=== PATIENT | female | born 1975 ===

== ENCOUNTER 2022-10-30 18:26 | Inpatient (IN) | payer OTHER ==
[2022-10-30] MEDS ORDERED: SODIUM CHLORIDE 0.9% 500 ML INFUS.BAG IV ONE ×3 (19:01→21:06)
[2022-10-30] MEDS ORDERED: DEXAMETHASONE SOD PHOSPHATE 10 MG/1 ML VIAL IVPUSH ONE (19:11)
[2022-10-30] MEDS ORDERED: ACETAMINOPHEN 1000 MG/100 ML BAG IVPB ONE (19:16)
[2022-10-30 19:47] LABS: HEMATOCRIT 38.1 % (32.4-45.2); HEMOGLOBIN 12.3 GM/dL (10.7-15.3); MCH 29.7 pg (25.7-33.7); MCHC 32.3 g/dl (32.0-36.0); MEAN CELL VOLUME 91.9 fl (80-96); MEAN PLT VOLUME 9.1 fl (7.5-11.1); PLATELET COUNT 179 10^3/uL (134-434); RBC 4.14 M/mm3 (3.60-5.2); RDW 14.3 % (11.6-15.6)
[2022-10-30 19:48] LABS: VENOUS BASE EXCESS -1.3 mmol/L (-2-2); VENOUS O2 SATURATION 66.6 % (70-80); VENOUS PCO2 43.4 mmHg (38-52); VENOUS PH 7.363 (7.310-7.410)
[2022-10-30 20:02] LABS: POTASSIUM 4.2 mmol/L (3.5-5.1)
[2022-10-30 20:03] LABS: CALCIUM 8.6 mg/dL (8.5-10.1)
[2022-10-30 20:04] LABS: BLOOD UREA NITROGEN 13.7 mg/dL (7-18)
[2022-10-30 20:07] LABS: CREATININE 0.6 mg/dL (0.55-1.3)
[2022-10-30 20:09] LABS: BILIRUBIN,TOTAL 0.3 mg/dL (0.2-1); TOT PROT 7.9 g/dl (6.4-8.2)
[2022-10-30] MEDS ORDERED: IVERMECTIN 3 MG TABLET PO ONE (20:15)
[2022-10-30 20:17] LABS: LACTIC ACID 4.2 mmol/L (0.4-2.0)
[2022-10-30 21:03] LABS: ANISOCYTOSIS 0; MACROCYTOSIS 0; PLATELET ESTIMATE NORMAL
[2022-10-30 21:17] LABS: INR 1.34 (0.83-1.09); PROTHROMBIN TIME (PATIENT) 15.5 SEC (9.7-13.0)
[2022-10-30 21:20] LABS: ACTIVATED PTT 30.6 SECONDS (25.2-36.5)
[2022-10-30 22:35] LABS: LACTIC ACID 3.2 mmol/L (0.4-2.0)
[2022-10-30] MEDS ORDERED: CLOPIDOGREL BISULFATE 300 MG TABLET PO ONE (22:45)
[2022-10-30] MEDS ORDERED: ENOXAPARIN NA (PORCINE) 40 MG/0.4 ML DISP.SYRIN SQ ONE ×2 (22:46→23:06)
[2022-10-31] MEDS ORDERED: CLOPIDOGREL BISULFATE 300 MG TABLET ONE (01:37)
[2022-10-31] MEDS ORDERED: SODIUM CHLORIDE 500 ML IV STA (02:47)
[2022-10-31 06:49] LABS: HEMOGLOBIN 11.1 GM/dL (10.7-15.3); MCH 30.1 pg (25.7-33.7); MCHC 32.6 g/dl (32.0-36.0); MEAN CELL VOLUME 92.6 fl (80-96); MEAN PLT VOLUME 9.1 fl (7.5-11.1); PLATELET COUNT 138 10^3/uL (134-434); RBC 3.67 M/mm3 (3.60-5.2); RDW 14.2 % (11.6-15.6)
[2022-10-31 07:05] LABS: POTASSIUM 3.9 mmol/L (3.5-5.1)
[2022-10-31 07:07] LABS: BLOOD UREA NITROGEN 11.9 mg/dL (7-18); CALCIUM 7.4 mg/dL (8.5-10.1); MAGNESIUM 1.9 mg/dL (1.8-2.4)
[2022-10-31 07:08] LABS: ALBUMIN 2.6 g/dl (3.4-5.0)
[2022-10-31 07:10] LABS: PHOSPHOROUS 2.1 mg/dL (2.5-4.9)
[2022-10-31 07:11] LABS: CREATININE 0.4 mg/dL (0.55-1.3)
[2022-10-31 07:12] LABS: BILIRUBIN,TOTAL 0.3 mg/dL (0.2-1); TOT PROT 6.9 g/dl (6.4-8.2)
[2022-10-31] MEDS ORDERED: TRIAMCINOLONE ACET 0.1% CREAM 15 GM TUBE TP PRN (07:19)
[2022-10-31] MEDS ORDERED: hydrOXYzine HCL 10 MG/5 ML LIQUID BULK BOTTLE GT PRN (09:47)
[2022-10-31] MEDS ORDERED: ENOXAPARIN NA (PORCINE) 40 MG/0.4 ML DISP.SYRIN SQ ONE (10:26)
[2022-10-31] MEDS: D5-1/2NS+10 MEQ KCL - 10 MEQ/1,000 ML INFUS.BAG IV SCH (10:27)
[2022-10-31] MEDS: ENOXAPARIN NA (PORCINE) 40 MG/0.4 ML DISP.SYRIN SQ SCH (10:28)
[2022-10-31] MEDS ORDERED: DEXAMETHASONE SOD PHOSPHATE 4 MG/1 ML VIAL IVPB ONE (14:24)
[2022-10-31] MEDS ORDERED: DEXAMETHASONE 4 MG TABLET (FP) PO SCH (14:30)
[2022-10-31] MEDS ORDERED: DEXAMETHASONE SOD PHOSPHATE 10 MG/1 ML VIAL ONE (14:35)
[2022-10-31] MEDS: ACETAMINOPHEN 650 MG/20.3 ML ORAL SOLUTION (CUPS) GT PRN (19:26)
[2022-10-31] MEDS: AZTREONAM 1 GM in DEXTROSE 5%-WATER - 50 ML IVPB SCH (20:55)
[2022-10-31] MEDS ORDERED: FAMOTIDINE 20 MG/50 ML IVPB 20 MG/50 ML MG IVPB SCH (22:00)
[2022-10-31] MEDS ORDERED: VANCOMYCIN 1 GM in D5W (PRE-DOCKED) 1,000 MG/250 ML (RESTRICTED TO ID ONLY IVPB SCH (22:00)
[2022-10-31] MEDS: VANCOMYCIN 1 GM/200 ML PREMIX BAG (RESTRICTED TO ID ONLY) IVPB SCH (22:07)
[2022-10-31] MEDS: FAMOTIDINE 20 MG/50 ML IVPB 20 MG/50 ML MG IVPB SCH (23:07)
[2022-11-01] MEDS ORDERED: ACETAMINOPHEN 1000 MG/100 ML BAG IVPB ONE (00:41)
[2022-11-01] MEDS: AZTREONAM 1 GM in DEXTROSE 5%-WATER - 50 ML IVPB SCH ×4 (01:34→20:20)
[2022-11-01] MEDS: D5-1/2NS+10 MEQ KCL - 10 MEQ/1,000 ML INFUS.BAG IV SCH ×2 (01:39→10:45)
[2022-11-01] MEDS ORDERED: AZTREONAM 1 GM in DEXTROSE 5%-WATER - 50 ML IVPB SCH (02:00)
[2022-11-01] MEDS ORDERED: LORazepam 2 MG TABLET PO ONE (03:34)
[2022-11-01] MEDS ORDERED: LORazepam 0.5 MG TABLET GT ONE (03:34)
[2022-11-01 08:21] LABS: BASO % 0.2 % (0-2.0); HEMATOCRIT 36.3 % (32.4-45.2); HEMOGLOBIN 11.7 GM/dL (10.7-15.3); LYMPH % 16.1 % (8-40); MCH 30.2 pg (25.7-33.7); MCHC 32.3 g/dl (32.0-36.0); MEAN CELL VOLUME 93.3 fl (80-96); MEAN PLT VOLUME 8.9 fl (7.5-11.1); MONO % 13.2 % (3.8-10.2); NEUT % 70.5 % (42.8-82.8); PLATELET COUNT 143 10^3/uL (134-434); RBC 3.88 M/mm3 (3.60-5.2); RDW 14.6 % (11.6-15.6); WHITE BLOOD COUNT 5.4 K/mm3 (4.0-10.0)
[2022-11-01 08:31] LABS: POTASSIUM 3.1 mmol/L (3.5-5.1)
[2022-11-01 08:35] LABS: CALCIUM 7.7 mg/dL (8.5-10.1)
[2022-11-01 08:36] LABS: ALBUMIN 2.7 g/dl (3.4-5.0); BLOOD UREA NITROGEN 17.1 mg/dL (7-18)
[2022-11-01 08:39] LABS: CREATININE 0.4 mg/dL (0.55-1.3)
[2022-11-01 08:41] LABS: BILIRUBIN,TOTAL 0.4 mg/dL (0.2-1); TOT PROT 7.1 g/dl (6.4-8.2)
[2022-11-01] MEDS: FAMOTIDINE 20 MG/50 ML IVPB 20 MG/50 ML MG IVPB SCH ×2 (10:43→21:58)
[2022-11-01] MEDS: ENOXAPARIN NA (PORCINE) 40 MG/0.4 ML DISP.SYRIN SQ SCH (10:44)
[2022-11-01] MEDS: VANCOMYCIN 1 GM/200 ML PREMIX BAG (RESTRICTED TO ID ONLY) IVPB SCH (11:13)
[2022-11-01] MEDS: ACETAMINOPHEN 650 MG/20.3 ML ORAL SOLUTION (CUPS) GT PRN (11:16)
[2022-11-01] MEDS ORDERED: REMDESIVIR 200 MG in SODIUM CHLORIDE 250 ML IVPB ONE (15:09)
[2022-11-01] MEDS: DEXAMETHASONE SOD PHOSPHATE 10 MG/1 ML VIAL IVPUSH SCH (16:17)
[2022-11-02 07:09] LABS: BASO % 0.1 % (0-2.0); LYMPH % 30.8 % (8-40); MCH 29.9 pg (25.7-33.7); MCHC 32.4 g/dl (32.0-36.0); MEAN CELL VOLUME 92.3 fl (80-96); MONO % 10.5 % (3.8-10.2); NEUT % 58.6 % (42.8-82.8); PLATELET COUNT 135 10^3/uL (134-434); RBC 4.01 M/mm3 (3.60-5.2); RDW 14.5 % (11.6-15.6); WHITE BLOOD COUNT 2.8 K/mm3 (4.0-10.0)
[2022-11-02 07:17] LABS: POTASSIUM 3.4 mmol/L (3.5-5.1)
[2022-11-02 07:18] LABS: CALCIUM 7.1 mg/dL (8.5-10.1)
[2022-11-02 07:19] LABS: ALBUMIN 2.6 g/dl (3.4-5.0); BLOOD UREA NITROGEN 13.8 mg/dL (7-18)
[2022-11-02 07:22] LABS: CREATININE 0.3 mg/dL (0.55-1.3)
[2022-11-02 07:24] LABS: BILIRUBIN,TOTAL 0.3 mg/dL (0.2-1); TOT PROT 6.7 g/dl (6.4-8.2)
[2022-11-02] MEDS ORDERED: POTASSIUM CHLORIDE ORAL LIQUID 20 MEQ/15 ML PO ONE (09:15)
[2022-11-02] MEDS ORDERED: REMDESIVIR 100 MG in SODIUM CHLORIDE 250 ML IVPB SCH (10:00)
[2022-11-02] MEDS: DEXAMETHASONE SOD PHOSPHATE 10 MG/1 ML VIAL IVPUSH SCH (10:03)
[2022-11-02] MEDS: ENOXAPARIN NA (PORCINE) 40 MG/0.4 ML DISP.SYRIN SQ SCH (10:03)
[2022-11-02] MEDS: FAMOTIDINE 20 MG/50 ML IVPB 20 MG/50 ML MG IVPB SCH ×2 (10:04→21:55)
[2022-11-02] MEDS: ACETAMINOPHEN 650 MG/20.3 ML ORAL SOLUTION (CUPS) GT PRN ×2 (10:52→18:37)
[2022-11-02] MEDS ORDERED: LIDOCAINE VISCOUS 2% ORAL/TOP 15 ML UNIT-DOSE CUP MM ONE (12:00)
[2022-11-02] MEDS: DEXTROSE 5%-0.45% SALINE 1,000 ML IV SCH (15:14)
[2022-11-02] MEDS: REMDESIVIR 100 MG in SODIUM CHLORIDE 250 ML IVPB SCH (18:37)
[2022-11-02] MEDS ORDERED: SENNOSIDES 8.8 MG/5 ML SYRUP GT SCH (20:00)
[2022-11-02] MEDS: [UNRECOGNIZED DRUG - OTHER] TP SCH (23:17)
[2022-11-03 08:56] LABS: POTASSIUM 3.5 mmol/L (3.5-5.1)
[2022-11-03 08:59] LABS: CALCIUM 8.1 mg/dL (8.5-10.1)
[2022-11-03 09:00] LABS: BLOOD UREA NITROGEN 13.5 mg/dL (7-18)
[2022-11-03 09:03] LABS: CREATININE 0.6 mg/dL (0.55-1.3)
[2022-11-03] MEDS ORDERED: POTASSIUM CHLORIDE ORAL LIQUID 20 MEQ/15 ML PO ONE (09:42)
[2022-11-03] MEDS: FAMOTIDINE 20 MG/50 ML IVPB 20 MG/50 ML MG IVPB SCH ×2 (10:25→21:03)
[2022-11-03] MEDS: ENOXAPARIN NA (PORCINE) 40 MG/0.4 ML DISP.SYRIN SQ SCH (10:25)
[2022-11-03] MEDS: DEXAMETHASONE SOD PHOSPHATE 10 MG/1 ML VIAL IVPUSH SCH (10:26)
[2022-11-03] MEDS: LORazepam 2 MG/ML SDV VIAL IVPUSH PRN ×2 (10:42→21:03)
[2022-11-03] MEDS: DEXTROSE 5%-0.45% SALINE 1,000 ML IV SCH (13:25)
[2022-11-03] MEDS: REMDESIVIR 100 MG in SODIUM CHLORIDE 250 ML IVPB SCH (17:21)
[2022-11-03 18:19] VITALS: BP 146/76; PULSE 106; RESP 19; TEMP 97.8
== END 2022-11-03 23:00 | disposition short-term general hospital (02) | DRG 871 ==
LOC: JER 18:26 → JERBED 22:29 → J4S 10-31 20:04
PROVIDERS: ADMIT Internal Medicine; ATTEND Internal Medicine
PROC: 3E0333Z Introduction of Anti-inflammatory into Peripheral Vein, Percutaneous Approach (ICD-10-PCS; 2022-11-01)
PROC: XW033E5 Introduction of Remdesivir Anti-infective into Peripheral Vein, Percutaneous Approach, New Technology Group 5 (ICD-10-PCS; principal; 2022-11-02)
DX: A41.89 Other specified sepsis (principal); G80.0 Spastic quadriplegic cerebral palsy; J12.82 Pneumonia due to coronavirus disease 2019; U07.1 COVID-19; J96.01 Acute respiratory failure with hypoxia; R53.2 Functional quadriplegia; E87.0 Hyperosmolality and hypernatremia; I24.8 Other forms of acute ischemic heart disease; F72 Severe intellectual disabilities; M62.82 Rhabdomyolysis; Z93.1 Gastrostomy status; R00.0 Tachycardia, unspecified; R50.9 Fever, unspecified; M81.0 Age-related osteoporosis without current pathological fracture; L40.8 Other psoriasis; R13.19 Other dysphagia; R77.8 Other specified abnormalities of plasma proteins; E87.6 Hypokalemia; E86.0 Dehydration
CPT/HCPCS: 0241U-QW; 36415; 71045-TC-FY; 80048; 80053; 82550; 82553; 82803; 83605; 83735; 84100; 84484; 85025; 85027; 85379; 85610; 85730; 86140; 86850; 86900; 86901; 87040; 93005; 93010; 99285-25; C9399; J1100

== ENCOUNTER 2022-11-09 00:07 | Inpatient (IN) | payer OTHER ==
[2022-11-09] MEDS ORDERED: PANTOPRAZOLE SODIUM 40 MG VIAL IVPUSH ONE (00:45)
[2022-11-09] MEDS ORDERED: PANTOPRAZOLE SODIUM 40 MG VIAL ONE (01:07)
[2022-11-09 01:42] LABS: BASO % 0.1 % (0-2.0); EOS % 2.3 % (0-4.5); HEMATOCRIT 34.6 % (32.4-45.2); HEMOGLOBIN 11.5 GM/dL (10.7-15.3); INR 1.13 (0.83-1.09); LYMPH % 11.5 % (8-40); MCH 29.2 pg (25.7-33.7); MCHC 33.1 g/dl (32.0-36.0); MEAN CELL VOLUME 88.2 fl (80-96); MONO % 8.1 % (3.8-10.2); PLATELET COUNT 370 10^3/uL (134-434); PROTHROMBIN TIME (PATIENT) 13.1 SEC (9.7-13.0); RBC 3.92 M/mm3 (3.60-5.2); RDW 14.5 % (11.6-15.6); WHITE BLOOD COUNT 15.5 K/mm3 (4.0-10.0)
[2022-11-09 01:45] LABS: ACTIVATED PTT 28.8 SECONDS (25.2-36.5)
[2022-11-09 01:58] LABS: POTASSIUM 4.4 mmol/L (3.5-5.1)
[2022-11-09 02:00] LABS: BLOOD UREA NITROGEN 16.2 mg/dL (7-18); CALCIUM 9.2 mg/dL (8.5-10.1)
[2022-11-09 02:01] LABS: ALBUMIN 2.7 g/dl (3.4-5.0); MAGNESIUM 1.9 mg/dL (1.8-2.4)
[2022-11-09 02:04] LABS: CREATININE 0.3 mg/dL (0.55-1.3)
[2022-11-09 02:05] LABS: BILIRUBIN,TOTAL 0.4 mg/dL (0.2-1); TOT PROT 7.3 g/dl (6.4-8.2)
[2022-11-09 02:41] LABS: EPI CELLS 7 /uL (0-25.1); HYALINE CASTS 0 /uL (0-3.1); PH,URINE 6.5 (5.0-8.0); URINE APPEARANCE CLEAR; URINE BACTERIA 5 /uL (0-1359); URINE BILIRUBIN NEGATIVE (NEGATIVE); URINE COLOR YELLOW; URINE GLUCOSE (UA) NEGATIVE (NEGATIVE); URINE KETONE NEGATIVE (NEGATIVE); URINE LEUK ESTERASE NEGATIVE (NEGATIVE); URINE NITRITE NEGATIVE (NEGATIVE); URINE PROTEIN NEGATIVE (NEGATIVE); URINE RBC 72 /uL (0-23.9); URINE WBC 8 /uL (0-25.8)
[2022-11-09] MEDS ORDERED: SODIUM CHLORIDE 1,000 ML IV STA ×2 (04:44→05:30)
[2022-11-09] MEDS ORDERED: SODIUM CHLORIDE 1,000 ML IV SCH (06:00)
[2022-11-09 09:45] LABS: BASO % 0.2 % (0-2.0); EOS % 1.5 % (0-4.5); HEMATOCRIT 27.8 % (32.4-45.2); HEMOGLOBIN 9.1 GM/dL (10.7-15.3); LYMPH % 15.5 % (8-40); MCH 29.3 pg (25.7-33.7); MCHC 32.8 g/dl (32.0-36.0); MEAN CELL VOLUME 89.5 fl (80-96); MEAN PLT VOLUME 8.5 fl (7.5-11.1); NEUT % 74.8 % (42.8-82.8); PLATELET COUNT 245 10^3/uL (134-434); RDW 14.8 % (11.6-15.6); WHITE BLOOD COUNT 8.8 K/mm3 (4.0-10.0)
[2022-11-09 09:48] LABS: POTASSIUM 4.1 mmol/L (3.5-5.1)
[2022-11-09 09:55] LABS: ALBUMIN 2.2 g/dl (3.4-5.0); BLOOD UREA NITROGEN 15.5 mg/dL (7-18); CALCIUM 7.9 mg/dL (8.5-10.1)
[2022-11-09 09:58] LABS: CREATININE 0.3 mg/dL (0.55-1.3)
[2022-11-09 09:59] LABS: BILIRUBIN,TOTAL 0.4 mg/dL (0.2-1); TOT PROT 6.2 g/dl (6.4-8.2)
[2022-11-09] MEDS ORDERED: PANTOPRAZOLE SODIUM 40 MG VIAL IV SCH (10:00)
[2022-11-09] MEDS ORDERED: POLYETHYLENE GLYCOL 3350 255 GM BTL PO ONE (10:01)
[2022-11-09] MEDS: PANTOPRAZOLE SODIUM 40 MG VIAL IV SCH (15:29)
[2022-11-09 15:58] LABS: HEMATOCRIT 27.4 % (32.4-45.2); HEMOGLOBIN 8.9 GM/dL (10.7-15.3); MCH 29.6 pg (25.7-33.7); MCHC 32.4 g/dl (32.0-36.0); MEAN CELL VOLUME 91.2 fl (80-96); MEAN PLT VOLUME 9.2 fl (7.5-11.1); PLATELET COUNT 275 10^3/uL (134-434); RDW 14.5 % (11.6-15.6); WHITE BLOOD COUNT 9.3 K/mm3 (4.0-10.0)
[2022-11-09 16:28] LABS: ANISOCYTOSIS 0; HELMET CELLS 0; HOWELL-JOLLY BODIES 0; MACROCYTOSIS 0; OVALOCYTE 0; ROULEAU 0; SICKELED CELLS 0; TARGET CELLS 0; TEAR DROP CELLS 0; TOXIC GRANULATION 0
[2022-11-09] MEDS ORDERED: HYDROCORTISONE ACETATE 25 MG/SUPP.RECT RC SCH (22:00)
[2022-11-09] MEDS: MINERAL OIL/PET HY-PHL TOPICAL OINTMENT 454 GM JAR TP SCH (23:25)
[2022-11-10 06:38] LABS: BASO % 0.6 % (0-2.0); EOS % 1.3 % (0-4.5); HEMATOCRIT 27.6 % (32.4-45.2); LYMPH % 14.7 % (8-40); MCH 29.5 pg (25.7-33.7); MCHC 32.4 g/dl (32.0-36.0); MEAN CELL VOLUME 91.1 fl (80-96); MEAN PLT VOLUME 8.7 fl (7.5-11.1); MONO % 7.3 % (3.8-10.2); NEUT % 76.1 % (42.8-82.8); PLATELET COUNT 296 10^3/uL (134-434); RBC 3.03 M/mm3 (3.60-5.2); RDW 14.8 % (11.6-15.6)
[2022-11-10 07:05] LABS: POTASSIUM 4.4 mmol/L (3.5-5.1)
[2022-11-10 07:09] LABS: ALBUMIN 2.5 g/dl (3.4-5.0); CALCIUM 8.2 mg/dL (8.5-10.1)
[2022-11-10 07:10] LABS: BLOOD UREA NITROGEN 14.8 mg/dL (7-18); MAGNESIUM 2.1 mg/dL (1.8-2.4)
[2022-11-10 07:12] LABS: CREATININE 0.3 mg/dL (0.55-1.3)
[2022-11-10 07:14] LABS: BILIRUBIN,TOTAL 0.5 mg/dL (0.2-1); TOT PROT 6.6 g/dl (6.4-8.2)
[2022-11-10] MEDS: MINERAL OIL/PET HY-PHL TOPICAL OINTMENT 454 GM JAR TP SCH ×2 (10:59→22:42)
[2022-11-10] MEDS: PANTOPRAZOLE SODIUM 40 MG VIAL IV SCH (11:00)
[2022-11-10] MEDS: POLYETHYLENE GLYCOL (HEALTHYLAX) 3350 17 GM PACKET GT SCH (22:43)
[2022-11-11 08:37] LABS: INR 1.24 (0.83-1.09); PROTHROMBIN TIME (PATIENT) 14.4 SEC (9.7-13.0)
[2022-11-11 08:51] LABS: BASO % 0.5 % (0-2.0); EOS % 0.1 % (0-4.5); HEMATOCRIT 27.7 % (32.4-45.2); HEMOGLOBIN 9.1 GM/dL (10.7-15.3); LYMPH % 10.8 % (8-40); MCH 29.7 pg (25.7-33.7); MCHC 32.9 g/dl (32.0-36.0); MEAN CELL VOLUME 90.4 fl (80-96); MEAN PLT VOLUME 8.7 fl (7.5-11.1); MONO % 5.7 % (3.8-10.2); NEUT % 82.9 % (42.8-82.8); PLATELET COUNT 364 10^3/uL (134-434); RBC 3.07 M/mm3 (3.60-5.2); RDW 14.6 % (11.6-15.6)
[2022-11-11 09:14] LABS: POTASSIUM 3.8 mmol/L (3.5-5.1)
[2022-11-11] MEDS ORDERED: PEG 3350/NA SULF BICARB CL/KCL 4000 ML SOLN.RECON PO ONE (09:15)
[2022-11-11 09:19] LABS: CALCIUM 8.3 mg/dL (8.5-10.1)
[2022-11-11 09:20] LABS: ALBUMIN 2.7 g/dl (3.4-5.0); BLOOD UREA NITROGEN 12.1 mg/dL (7-18); MAGNESIUM 2.3 mg/dL (1.8-2.4)
[2022-11-11 09:22] LABS: CREATININE 0.4 mg/dL (0.55-1.3)
[2022-11-11] MEDS ORDERED: ACETAMINOPHEN 1000 MG/100 ML BAG IVPB PRN ×3 (09:23→15:27)
[2022-11-11 09:24] LABS: BILIRUBIN,TOTAL 0.5 mg/dL (0.2-1)
[2022-11-11] MEDS: PANTOPRAZOLE SODIUM 40 MG VIAL IV SCH (10:47)
[2022-11-11] MEDS: MINERAL OIL/PET HY-PHL TOPICAL OINTMENT 454 GM JAR TP SCH ×2 (10:47→22:12)
[2022-11-11] MEDS ORDERED: PANTOPRAZOLE SODIUM 40 MG VIAL IVPUSH ONE (11:15)
[2022-11-11] MEDS ORDERED: SODIUM CHLORIDE 0.9% 500 ML INFUS.BAG IV ONE (11:16)
[2022-11-11] MEDS ORDERED: VANCOMYCIN/WATER FOR INJ (PEG) 1,000 MG/200 ML BAG IVPB ONE (11:41)
[2022-11-11] MEDS ORDERED: AZTREONAM 1 GM in DEXTROSE 5%-WATER - 50 ML IVPB ONE ×2 (12:00→15:27)
[2022-11-11 13:26] LABS: BASO % 0.4 % (0-2.0); HEMATOCRIT 26.1 % (32.4-45.2); HEMOGLOBIN 8.4 GM/dL (10.7-15.3); LYMPH % 9.5 % (8-40); MCH 29.5 pg (25.7-33.7); MCHC 32.1 g/dl (32.0-36.0); MEAN CELL VOLUME 91.8 fl (80-96); MONO % 7.4 % (3.8-10.2); NEUT % 82.7 % (42.8-82.8); PLATELET COUNT 379 10^3/uL (134-434); RBC 2.84 M/mm3 (3.60-5.2); RDW 14.6 % (11.6-15.6)
[2022-11-11] MEDS ORDERED: LIDOCAINE HCL 2% 100 MG/5 ML DISP.SYRIN ONE (13:27)
[2022-11-11] MEDS ORDERED: POLYETHYLENE GLYCOL (HEALTHYLAX) 3350 17 GM PACKET GT SCH (14:00)
[2022-11-11 15:13] LABS: EPI CELLS 3 /uL (0-25.1); HYALINE CASTS 17 /uL (0-3.1); PH,URINE 5.5 (5.0-8.0); URINE APPEARANCE CLEAR; URINE BILIRUBIN NEGATIVE (NEGATIVE); URINE COLOR YELLOW; URINE GLUCOSE (UA) NEGATIVE (NEGATIVE); URINE KETONE 4+ (NEGATIVE); URINE LEUK ESTERASE 1+ (NEGATIVE); URINE NITRITE POSITIVE (NEGATIVE); URINE PROTEIN 1+ (NEGATIVE); URINE RBC 16 /uL (0-23.9); URINE WBC 212 /uL (0-25.8)
[2022-11-11] MEDS: POLYETHYLENE GLYCOL (HEALTHYLAX) 3350 17 GM PACKET GT SCH (15:19)
[2022-11-11] MEDS ORDERED: SODIUM CHLORIDE 0.9% 1000 ML INFUS.BAG IV ONE (15:27)
[2022-11-11 15:36] LABS: URINE BACTERIA 1212 /uL (0-1359); YEAST PRESENT (NEGATIVE)
[2022-11-11] MEDS ORDERED: PEG 3350/NA SULF BICARB CL/KCL 4000 ML SOLN.RECON GT ONE (16:00)
[2022-11-11] MEDS: SODIUM CHLORIDE 1,000 ML IV SCH (16:00)
[2022-11-11] MEDS: MUPIROCIN 2% TOPICAL OINTMENT FOR DECOLONIZATION NS SCH ×2 (16:01→22:12)
[2022-11-11] MEDS ORDERED: NOREPINEPHRINE BITARTRATE 4 MG/4 ML ML IV ONE (16:34)
[2022-11-11] MEDS ORDERED: NOREPINEPHRINE BITARTRATE 4,000 MCG in DEXTROSE 5%-WATER - 496 ML IV SCH (16:45)
[2022-11-11] MEDS: NOREPINEPHRINE BITARTRATE/D5W 8 MG/250 ML BAG IVPB SCH (17:06)
[2022-11-11 17:34] LABS: HEMATOCRIT 24.4 % (32.4-45.2); HEMOGLOBIN 8.2 GM/dL (10.7-15.3); MCH 30.5 pg (25.7-33.7); MCHC 33.7 g/dl (32.0-36.0); MEAN CELL VOLUME 90.7 fl (80-96); MEAN PLT VOLUME 7.8 fl (7.5-11.1); PLATELET COUNT 240 10^3/uL (134-434); RBC 2.68 M/mm3 (3.60-5.2); RDW 14.1 % (11.6-15.6)
[2022-11-11] MEDS ORDERED: PEG 3350/NA SULF BICARB CL/KCL 4000 ML SOLN.RECON PEG ONE (17:58)
[2022-11-11] MEDS: AZTREONAM 1 GM in DEXTROSE 5%-WATER - 50 ML IVPB SCH (21:30)
[2022-11-11] MEDS: CHLORHEXIDINE GLUCONATE 4% CLEANSER FOR DECOLONIZATION TP SCH (22:12)
[2022-11-12] MEDS: AZTREONAM 1 GM in DEXTROSE 5%-WATER - 50 ML IVPB SCH ×3 (03:01→17:17)
[2022-11-12 07:25] LABS: INR 1.26 (0.83-1.09); PROTHROMBIN TIME (PATIENT) 14.6 SEC (9.7-13.0)
[2022-11-12 07:32] LABS: BASO % 0.7 % (0-2.0); EOS % 0.9 % (0-4.5); HEMATOCRIT 22.8 % (32.4-45.2); HEMOGLOBIN 7.6 GM/dL (10.7-15.3); LYMPH % 21.7 % (8-40); MCH 30.4 pg (25.7-33.7); MCHC 33.4 g/dl (32.0-36.0); MEAN CELL VOLUME 90.9 fl (80-96); MEAN PLT VOLUME 8.2 fl (7.5-11.1); MONO % 11.3 % (3.8-10.2); NEUT % 65.4 % (42.8-82.8); PLATELET COUNT 233 10^3/uL (134-434); RBC 2.51 M/mm3 (3.60-5.2); RDW 14.2 % (11.6-15.6); WHITE BLOOD COUNT 6.1 K/mm3 (4.0-10.0)
[2022-11-12 07:33] LABS: CHLORIDE 113 mmol/L (98-107)
[2022-11-12 07:36] LABS: BLOOD UREA NITROGEN 9.3 mg/dL (7-18); CO2 26 mmol/L (21-32); GLUCOSE,RANDOM 124 mg/dL (74-106); MAGNESIUM 1.9 mg/dL (1.8-2.4)
[2022-11-12 07:38] LABS: SGPT/ALT 13 U/L (13-61)
[2022-11-12 07:39] LABS: CREATININE 0.2 mg/dL (0.55-1.3); SGOT/AST 11 U/L (15-37)
[2022-11-12 07:40] LABS: BILIRUBIN,TOTAL 0.5 mg/dL (0.2-1); TOT PROT 5.4 g/dl (6.4-8.2)
[2022-11-12 07:41] LABS: ALK PHOS 43 U/L (45-117)
[2022-11-12 07:44] LABS: ALBUMIN 2.1 g/dl (3.4-5.0); ANION GAP 9 MMOL/L (8-16); CALCIUM 6.5 mg/dL (8.5-10.1); POTASSIUM 2.7 mmol/L (3.5-5.1); SODIUM 148 mmol/L (136-145)
[2022-11-12 08:32] LABS: PHOSPHOROUS 0.8 mg/dL (2.5-4.9)
[2022-11-12] MEDS ORDERED: POTASSIUM CHLORIDE ORAL LIQUID 20 MEQ/15 ML GT ONE (09:15)
[2022-11-12] MEDS: KCL 10 MEQ IVPB 10 MEQ/100 ML INFUS.BAG IVPB SCH ×2 (09:28→18:59)
[2022-11-12] MEDS: MINERAL OIL/PET HY-PHL TOPICAL OINTMENT 454 GM JAR TP SCH ×2 (09:30→21:47)
[2022-11-12] MEDS ORDERED: CALCIUM GLUC IN NACL, ISO-OSM 1 GM/50 ML BAG IVPB ONE (10:00)
[2022-11-12] MEDS: PANTOPRAZOLE SODIUM 40 MG VIAL IV SCH (10:15)
[2022-11-12] MEDS ORDERED: KCL 20 MEQ PREMIX BAG 100 ML IVPB SCH (10:15)
[2022-11-12] MEDS: MUPIROCIN 2% TOPICAL OINTMENT FOR DECOLONIZATION NS SCH ×2 (10:38→21:24)
[2022-11-12] MEDS ORDERED: POTASSIUM PHOSPHATE 30 MM in DEXTROSE 5%-WATER - 250 ML IVPB ONE (11:00)
[2022-11-12 11:25] LABS: BASO % 0.7 % (0-2.0); EOS % 1.1 % (0-4.5); HEMATOCRIT 23.6 % (32.4-45.2); HEMOGLOBIN 7.9 GM/dL (10.7-15.3); LYMPH % 21.1 % (8-40); MCH 30.2 pg (25.7-33.7); MCHC 33.4 g/dl (32.0-36.0); MEAN CELL VOLUME 90.5 fl (80-96); MEAN PLT VOLUME 9.3 fl (7.5-11.1); MONO % 10.6 % (3.8-10.2); NEUT % 66.5 % (42.8-82.8); RDW 13.9 % (11.6-15.6)
[2022-11-12 11:28] LABS: PLATELET COUNT 164 10^3/uL (134-434)
[2022-11-12 11:49] LABS: CHLORIDE 116 mmol/L (98-107); POTASSIUM 3.8 mmol/L (3.5-5.1); SODIUM 145 mmol/L (136-145)
[2022-11-12 11:58] LABS: ALBUMIN 2.2 g/dl (3.4-5.0); ANION GAP 6 MMOL/L (8-16); BLOOD UREA NITROGEN 6.6 mg/dL (7-18); CO2 24 mmol/L (21-32); GLUCOSE,RANDOM 113 mg/dL (74-106); MAGNESIUM 1.9 mg/dL (1.8-2.4)
[2022-11-12 11:59] LABS: CREATININE 0.2 mg/dL (0.55-1.3)
[2022-11-12 12:00] LABS: TOT PROT 5.6 g/dl (6.4-8.2)
[2022-11-12 12:01] LABS: BILIRUBIN,TOTAL 0.4 mg/dL (0.2-1); SGOT/AST 14 U/L (15-37)
[2022-11-12 12:02] LABS: ALK PHOS 41 U/L (45-117); SGPT/ALT 13 U/L (13-61)
[2022-11-12 12:10] LABS: CALCIUM 6.9 mg/dL (8.5-10.1); PHOSPHOROUS 0.6 mg/dL (2.5-4.9)
[2022-11-12] MEDS ORDERED: POTASSIUM PHOSPHATE 30 MM in DEXTROSE 5%-WATER - 500 ML IVPB ONE (14:59)
[2022-11-12] MEDS ORDERED: SODIUM PHOSPHATE - 15 MM in DEXTROSE 5%-WATER - 250 ML IVPB ONE (15:32)
[2022-11-12] MEDS ORDERED: SODIUM CHLORIDE 1,000 ML IV SCH (15:50)
[2022-11-12] MEDS: POLYETHYLENE GLYCOL (HEALTHYLAX) 3350 17 GM PACKET GT SCH ×2 (16:58→21:24)
[2022-11-12] MEDS: VANCOMYCIN/WATER FOR INJ (PEG) 1,000 MG/200 ML BAG IVPB SCH (16:58)
[2022-11-12] MEDS: NOREPINEPHRINE BITARTRATE/D5W 8 MG/250 ML BAG IVPB SCH (17:00)
[2022-11-12] MEDS: SODIUM CHLORIDE 1,000 ML IV SCH (17:16)
[2022-11-12] MEDS ORDERED: CALCIUM GLUCONATE 10% - 1,000 MG/10 ML VIAL IVPB ONE (17:25)
[2022-11-12] MEDS: CHLORHEXIDINE GLUCONATE 4% CLEANSER FOR DECOLONIZATION TP SCH (21:24)
[2022-11-13] MEDS: SODIUM CHLORIDE 1,000 ML IV SCH ×2 (02:28→15:32)
[2022-11-13] MEDS: AZTREONAM 1 GM in DEXTROSE 5%-WATER - 50 ML IVPB SCH ×3 (02:52→17:44)
[2022-11-13] MEDS: POLYETHYLENE GLYCOL (HEALTHYLAX) 3350 17 GM PACKET GT SCH ×3 (05:42→21:12)
[2022-11-13 07:31] LABS: BASO % 0.5 % (0-2.0); EOS % 4.2 % (0-4.5); HEMATOCRIT 25.6 % (32.4-45.2); LYMPH % 18.3 % (8-40); MCH 31.4 pg (25.7-33.7); MEAN CELL VOLUME 89.7 fl (80-96); MEAN PLT VOLUME 8.2 fl (7.5-11.1); PLATELET COUNT 189 10^3/uL (134-434); RBC 2.85 M/mm3 (3.60-5.2); WHITE BLOOD COUNT 5.3 K/mm3 (4.0-10.0)
[2022-11-13 07:46] LABS: CHLORIDE 108 mmol/L (98-107); POTASSIUM 3.8 mmol/L (3.5-5.1); SODIUM 139 mmol/L (136-145)
[2022-11-13 07:55] LABS: ALBUMIN 2.1 g/dl (3.4-5.0); ANION GAP 3 MMOL/L (8-16); CO2 29 mmol/L (21-32); GLUCOSE,RANDOM 102 mg/dL (74-106); MAGNESIUM 1.7 mg/dL (1.8-2.4)
[2022-11-13 07:58] LABS: PHOSPHOROUS 2.4 mg/dL (2.5-4.9); SGOT/AST 14 U/L (15-37); SGPT/ALT 14 U/L (13-61)
[2022-11-13 08:00] LABS: BILIRUBIN,TOTAL 0.5 mg/dL (0.2-1); TOT PROT 5.2 g/dl (6.4-8.2)
[2022-11-13 08:01] LABS: ALK PHOS 42 U/L (45-117)
[2022-11-13 08:42] LABS: BLOOD UREA NITROGEN 2.1 mg/dL (7-18); CALCIUM 6.7 mg/dL (8.5-10.1); CREATININE < 0.2 mg/dL (0.55-1.3)
[2022-11-13] MEDS: MINERAL OIL/PET HY-PHL TOPICAL OINTMENT 454 GM JAR TP SCH ×2 (10:09→21:12)
[2022-11-13] MEDS: PANTOPRAZOLE SODIUM 40 MG VIAL IV SCH (10:09)
[2022-11-13] MEDS: MUPIROCIN 2% TOPICAL OINTMENT FOR DECOLONIZATION NS SCH ×2 (10:09→21:12)
[2022-11-13] MEDS ORDERED: MAGNESIUM SULFATE IN WATER 2 GM/50 ML IVPB IVPB ONE (10:45)
[2022-11-13] MEDS ORDERED: CALCIUM GLUC IN NACL, ISO-OSM 1 GM/50 ML BAG IVPB ONE (10:45)
[2022-11-13] MEDS ORDERED: KCL 20 MEQ PREMIX BAG 100 ML IVPB ONE (11:00)
[2022-11-13] MEDS ORDERED: POTASSIUM PHOSPHATE 30 MM in DEXTROSE 5%-WATER - 250 ML IVPB ONE (11:30)
[2022-11-13 12:06] VITALS: BMI 16.5
[2022-11-13] MEDS: VANCOMYCIN/WATER FOR INJ (PEG) 1,000 MG/200 ML BAG IVPB SCH ×2 (15:05→15:32)
[2022-11-13] MEDS: CHLORHEXIDINE GLUCONATE 4% CLEANSER FOR DECOLONIZATION TP SCH (21:12)
[2022-11-14] MEDS: AZTREONAM 1 GM in DEXTROSE 5%-WATER - 50 ML IVPB SCH ×4 (01:49→17:52)
[2022-11-14] MEDS: POLYETHYLENE GLYCOL (HEALTHYLAX) 3350 17 GM PACKET GT SCH ×4 (05:38→21:51)
[2022-11-14 08:14] LABS: HEMATOCRIT 34.3 % (32.4-45.2); HEMOGLOBIN 11.6 GM/dL (10.7-15.3); MCH 30.8 pg (25.7-33.7); MCHC 33.8 g/dl (32.0-36.0); MEAN CELL VOLUME 91.1 fl (80-96); MEAN PLT VOLUME 8.2 fl (7.5-11.1); PLATELET COUNT 303 10^3/uL (134-434); RBC 3.77 M/mm3 (3.60-5.2); WHITE BLOOD COUNT 8.6 K/mm3 (4.0-10.0)
[2022-11-14 08:16] LABS: POTASSIUM 4.5 mmol/L (3.5-5.1)
[2022-11-14 08:21] LABS: MAGNESIUM 2.3 mg/dL (1.8-2.4)
[2022-11-14 08:24] LABS: BILIRUBIN,DIRECT 0.2 mg/dL (0.0-0.2); CREATININE 0.3 mg/dL (0.55-1.3); PHOSPHOROUS 2.8 mg/dL (2.5-4.9)
[2022-11-14 08:26] LABS: BILIRUBIN,TOTAL 0.4 mg/dL (0.2-1); TOT PROT 6.5 g/dl (6.4-8.2)
[2022-11-14 08:30] LABS: ALBUMIN 2.5 g/dl (3.4-5.0); CALCIUM 8.1 mg/dL (8.5-10.1)
[2022-11-14] MEDS: MINERAL OIL/PET HY-PHL TOPICAL OINTMENT 454 GM JAR TP SCH ×2 (09:55→21:50)
[2022-11-14] MEDS: MUPIROCIN 2% TOPICAL OINTMENT FOR DECOLONIZATION NS SCH ×2 (09:55→21:51)
[2022-11-14] MEDS: PANTOPRAZOLE SODIUM 40 MG VIAL IV SCH (09:56)
[2022-11-14] MEDS ORDERED: LORazepam 2 MG/ML SDV VIAL IVPUSH STA (13:29)
[2022-11-14] MEDS ORDERED: LORazepam 2 MG/ML SDV VIAL IVPUSH ONE (15:00)
[2022-11-14] MEDS: CHLORHEXIDINE GLUCONATE 4% CLEANSER FOR DECOLONIZATION TP SCH (21:51)
[2022-11-15] MEDS: AZTREONAM 1 GM in DEXTROSE 5%-WATER - 50 ML IVPB SCH ×3 (01:13→16:59)
[2022-11-15] MEDS: POLYETHYLENE GLYCOL (HEALTHYLAX) 3350 17 GM PACKET GT SCH ×3 (05:30→21:18)
[2022-11-15] MEDS: PANTOPRAZOLE SODIUM 40 MG VIAL IV SCH (09:15)
[2022-11-15] MEDS: MINERAL OIL/PET HY-PHL TOPICAL OINTMENT 454 GM JAR TP SCH ×2 (09:16→21:19)
[2022-11-15] MEDS: MUPIROCIN 2% TOPICAL OINTMENT FOR DECOLONIZATION NS SCH ×2 (09:17→21:19)
[2022-11-15] MEDS: CHLORHEXIDINE GLUCONATE 4% CLEANSER FOR DECOLONIZATION TP SCH (21:19)
[2022-11-16] MEDS: AZTREONAM 1 GM in DEXTROSE 5%-WATER - 50 ML IVPB SCH ×3 (01:00→17:01)
[2022-11-16] MEDS: POLYETHYLENE GLYCOL (HEALTHYLAX) 3350 17 GM PACKET GT SCH ×3 (06:35→21:04)
[2022-11-16] MEDS: PANTOPRAZOLE SODIUM 40 MG VIAL IV SCH (09:38)
[2022-11-16] MEDS: MUPIROCIN 2% TOPICAL OINTMENT FOR DECOLONIZATION NS SCH (09:39)
[2022-11-16] MEDS: MINERAL OIL/PET HY-PHL TOPICAL OINTMENT 454 GM JAR TP SCH ×2 (09:40→21:04)
[2022-11-16] MEDS: CHLORHEXIDINE GLUCONATE 4% CLEANSER FOR DECOLONIZATION TP SCH (21:04)
[2022-11-17] MEDS: AZTREONAM 1 GM in DEXTROSE 5%-WATER - 50 ML IVPB SCH ×3 (02:33→17:42)
[2022-11-17] MEDS: POLYETHYLENE GLYCOL (HEALTHYLAX) 3350 17 GM PACKET GT SCH ×3 (05:58→21:27)
[2022-11-17] MEDS: MINERAL OIL/PET HY-PHL TOPICAL OINTMENT 454 GM JAR TP SCH ×2 (09:20→21:31)
[2022-11-17] MEDS: PANTOPRAZOLE SODIUM 40 MG VIAL IV SCH (09:20)
[2022-11-17 11:28] LABS: HEMATOCRIT 35.4 % (32.4-45.2); HEMOGLOBIN 11.4 GM/dL (10.7-15.3); MCH 30.6 pg (25.7-33.7); MCHC 32.2 g/dl (32.0-36.0); MEAN CELL VOLUME 94.9 fl (80-96); MEAN PLT VOLUME 7.9 fl (7.5-11.1); PLATELET COUNT 269 10^3/uL (134-434); RBC 3.73 M/mm3 (3.60-5.2); RDW 15.1 % (11.6-15.6)
[2022-11-17 11:56] LABS: POTASSIUM 4.6 mmol/L (3.5-5.1)
[2022-11-17 12:00] LABS: ALBUMIN 2.5 g/dl (3.4-5.0); BLOOD UREA NITROGEN 11.7 mg/dL (7-18); CALCIUM 8.9 mg/dL (8.5-10.1)
[2022-11-17 12:02] LABS: CREATININE 0.3 mg/dL (0.55-1.3)
[2022-11-17 12:03] LABS: BILIRUBIN,TOTAL 0.3 mg/dL (0.2-1); TOT PROT 6.7 g/dl (6.4-8.2)
[2022-11-17] MEDS: CHLORHEXIDINE GLUCONATE 4% CLEANSER FOR DECOLONIZATION TP SCH (21:27)
[2022-11-18] MEDS: AZTREONAM 1 GM in DEXTROSE 5%-WATER - 50 ML IVPB SCH ×2 (02:01→09:32)
[2022-11-18] MEDS: POLYETHYLENE GLYCOL (HEALTHYLAX) 3350 17 GM PACKET GT SCH ×3 (05:14→21:37)
[2022-11-18] MEDS: PANTOPRAZOLE SODIUM 40 MG VIAL IV SCH (09:33)
[2022-11-18] MEDS: MINERAL OIL/PET HY-PHL TOPICAL OINTMENT 454 GM JAR TP SCH ×2 (09:33→21:37)
[2022-11-18] MEDS: CHLORHEXIDINE GLUCONATE 4% CLEANSER FOR DECOLONIZATION TP SCH (21:37)
[2022-11-19] MEDS: POLYETHYLENE GLYCOL (HEALTHYLAX) 3350 17 GM PACKET GT SCH (05:57)
[2022-11-19 07:57] LABS: HEMATOCRIT 33.9 % (32.4-45.2); HEMOGLOBIN 11.1 GM/dL (10.7-15.3); MCH 30.7 pg (25.7-33.7); MCHC 32.7 g/dl (32.0-36.0); MEAN CELL VOLUME 93.8 fl (80-96); MEAN PLT VOLUME 7.8 fl (7.5-11.1); PLATELET COUNT 251 10^3/uL (134-434); RBC 3.61 M/mm3 (3.60-5.2); WHITE BLOOD COUNT 5.6 K/mm3 (4.0-10.0)
[2022-11-19 08:04] LABS: POTASSIUM 5.4 mmol/L (3.5-5.1)
[2022-11-19 08:09] LABS: BLOOD UREA NITROGEN 11.5 mg/dL (7-18); CALCIUM 8.7 mg/dL (8.5-10.1)
[2022-11-19 08:10] LABS: ALBUMIN 2.6 g/dl (3.4-5.0); MAGNESIUM 2.2 mg/dL (1.8-2.4)
[2022-11-19 08:12] LABS: CREATININE 0.2 mg/dL (0.55-1.3); PHOSPHOROUS 3.8 mg/dL (2.5-4.9)
[2022-11-19 08:14] LABS: TOT PROT 6.6 g/dl (6.4-8.2)
[2022-11-19 08:24] LABS: BILIRUBIN,TOTAL 0.2 mg/dL (0.2-1)
[2022-11-19] MEDS ORDERED: SODIUM ZIRCONIUM CYCLOSILICATE (LOKELMA) 5 GM PACKET PO SCH (10:00)
[2022-11-19] MEDS: MINERAL OIL/PET HY-PHL TOPICAL OINTMENT 454 GM JAR TP SCH ×2 (11:00→22:00)
[2022-11-19] MEDS: PANTOPRAZOLE SODIUM 40 MG VIAL IV SCH (11:35)
[2022-11-19] MEDS: CHLORHEXIDINE GLUCONATE 4% CLEANSER FOR DECOLONIZATION TP SCH (22:00)
[2022-11-20 07:40] LABS: HEMATOCRIT 31.7 % (32.4-45.2); HEMOGLOBIN 10.4 GM/dL (10.7-15.3); MCH 30.7 pg (25.7-33.7); MCHC 32.8 g/dl (32.0-36.0); MEAN CELL VOLUME 93.5 fl (80-96); MEAN PLT VOLUME 7.8 fl (7.5-11.1); PLATELET COUNT 233 10^3/uL (134-434); RBC 3.39 M/mm3 (3.60-5.2); RDW 14.9 % (11.6-15.6)
[2022-11-20 07:57] LABS: POTASSIUM 4.5 mmol/L (3.5-5.1)
[2022-11-20 08:01] LABS: CALCIUM 8.5 mg/dL (8.5-10.1)
[2022-11-20 08:02] LABS: ALBUMIN 2.4 g/dl (3.4-5.0); BLOOD UREA NITROGEN 9.8 mg/dL (7-18); MAGNESIUM 2.1 mg/dL (1.8-2.4)
[2022-11-20 08:05] LABS: CREATININE 0.3 mg/dL (0.55-1.3); PHOSPHOROUS 3.4 mg/dL (2.5-4.9)
[2022-11-20 08:07] LABS: BILIRUBIN,TOTAL 0.3 mg/dL (0.2-1); TOT PROT 6.4 g/dl (6.4-8.2)
[2022-11-20] MEDS: PANTOPRAZOLE SODIUM 40 MG VIAL IV SCH (09:42)
[2022-11-20] MEDS: MINERAL OIL/PET HY-PHL TOPICAL OINTMENT 454 GM JAR TP SCH ×2 (09:42→22:46)
[2022-11-20] MEDS ORDERED: CHLORHEXIDINE GLUCONATE 4% CLEANSER FOR DECOLONIZATION TP SCH (22:00)
[2022-11-21] MEDS ORDERED: AMINO ACIDS/PROTEIN HYDROLYS 30 ML LIQUID.PKT PO SCH (08:00)
[2022-11-21 09:14] LABS: HEMATOCRIT 33.2 % (32.4-45.2); HEMOGLOBIN 11.2 GM/dL (10.7-15.3); MCHC 33.7 g/dl (32.0-36.0); MEAN CELL VOLUME 91.9 fl (80-96); MEAN PLT VOLUME 7.6 fl (7.5-11.1); PLATELET COUNT 211 10^3/uL (134-434); RBC 3.62 M/mm3 (3.60-5.2); RDW 15.4 % (11.6-15.6)
[2022-11-21 09:32] LABS: POTASSIUM 4.4 mmol/L (3.5-5.1)
[2022-11-21 09:44] LABS: BLOOD UREA NITROGEN 9.2 mg/dL (7-18); MAGNESIUM 2.1 mg/dL (1.8-2.4)
[2022-11-21 09:47] LABS: PHOSPHOROUS 3.6 mg/dL (2.5-4.9)
[2022-11-21 09:48] LABS: BILIRUBIN,TOTAL 0.3 mg/dL (0.2-1); CREATININE 0.3 mg/dL (0.55-1.3); TOT PROT 6.8 g/dl (6.4-8.2)
[2022-11-21 09:49] LABS: ALBUMIN 2.6 g/dl (3.4-5.0)
[2022-11-21] MEDS ORDERED: PANTOPRAZOLE SODIUM 40 MG VIAL IV SCH (10:00)
[2022-11-21] MEDS: MINERAL OIL/PET HY-PHL TOPICAL OINTMENT 454 GM JAR TP SCH (11:23)
[2022-11-21 14:38] VITALS: RESP 20
[2022-11-21 16:37] VITALS: BP 138/78; PULSE 75; TEMP 98
== END 2022-11-21 16:46 | disposition home or self-care (01) | DRG 391 ==
LOC: JER 00:07 → JERBED 04:00 → J7W 10:30 → JICU 11-11 11:45 → J8W 11-20 17:03
PROVIDERS: ADMIT Internal Medicine; ATTEND Internal Medicine
PROC: B543ZZA Ultrasonography of Right Jugular Veins, Guidance (ICD-10-PCS; 2022-11-11)
PROC: 30233N1 Transfusion of Nonautologous Red Blood Cells into Peripheral Vein, Percutaneous Approach (ICD-10-PCS; 2022-11-11)
PROC: 05HM33Z Insertion of Infusion Device into Right Internal Jugular Vein, Percutaneous Approach (ICD-10-PCS; principal; 2022-11-11 13:00)
PROC: 0DJD8ZZ Inspection of Lower Intestinal Tract, Via Natural or Artificial Opening Endoscopic (ICD-10-PCS; 2022-11-12)
DX: K52.89 Other specified noninfective gastroenteritis and colitis (principal); G80.0 Spastic quadriplegic cerebral palsy; R57.8 Other shock; U07.1 COVID-19; K62.5 Hemorrhage of anus and rectum; F72 Severe intellectual disabilities; N39.0 Urinary tract infection, site not specified; E87.0 Hyperosmolality and hypernatremia; M62.82 Rhabdomyolysis; D72.829 Elevated white blood cell count, unspecified; R00.0 Tachycardia, unspecified; R13.19 Other dysphagia; E87.6 Hypokalemia; K59.00 Constipation, unspecified; Z93.1 Gastrostomy status; R93.5 Abnormal findings on diagnostic imaging of other abdominal regions, including retroperitoneum; R50.9 Fever, unspecified; I95.9 Hypotension, unspecified; G40.909 Epilepsy, unspecified, not intractable, without status epilepticus; B96.20 Unspecified Escherichia coli [E. coli] as the cause of diseases classified elsewhere; E86.0 Dehydration; E83.42 Hypomagnesemia; E83.39 Other disorders of phosphorus metabolism
CPT/HCPCS: 36415; 36430; 71045-TC-FY; 74174-TC; 80048; 80053; 80076; 81003; 82272; 82550; 83605; 83735; 84100; 84132; 84484; 84702; 85025; 85027; 85610; 85730; 86140; 86850; 86900; 86901; 86922; 87040; 87086; 87186; 87635; 93005; 93010; 99285-25; P9058; Q9967

== ENCOUNTER 2023-04-24 17:15 | Emergency (ER) | payer OTHER ==
[2023-04-24 17:20] VITALS: BMI 29.4
[2023-04-24 18:42] VITALS: BP 128/78; PULSE 77; RESP 18
== END 2023-04-24 18:46 | disposition home or self-care (01) ==
LOC: JERFT 17:15
DX: R22.31 Localized swelling, mass and lump, right upper limb (principal); S60.041A Contusion of right ring finger without damage to nail, initial encounter; S60.051A Contusion of right little finger without damage to nail, initial encounter; X58.XXXA Exposure to other specified factors, initial encounter
CPT/HCPCS: 73110-TC-RT-FY; 73130-TC-RT-FY; 99283-25

== ENCOUNTER 2023-05-19 12:13 | Emergency (ER) | payer OTHER ==
[2023-05-19 12:28] VITALS: TEMP 98.4; BMI 17.6
[2023-05-19] MEDS ORDERED: morphine SULFATE 4 MG/ML VIAL ONE (12:42)
[2023-05-19] MEDS: morphine CARPU-JECT 4 MG/1 ML DISP.SYRIN IVPUSH ONE (12:58)
[2023-05-19 13:31] LABS: BASO % 0.4 % (0-2.0); EOS % 1.5 % (0-4.5); HEMATOCRIT 39.9 % (32.4-45.2); HEMOGLOBIN 13.2 GM/dL (10.7-15.3); LYMPH % 12.7 % (8-40); MCH 31.7 pg (25.7-33.7); MCHC 33.1 g/dl (32.0-36.0); MEAN CELL VOLUME 95.9 fl (80-96); MEAN PLT VOLUME 9.2 fl (7.5-11.1); NEUT % 77.4 % (42.8-82.8); PLATELET COUNT 155 10^3/uL (134-434); RBC 4.16 M/mm3 (3.60-5.2); RDW 14.1 % (11.6-15.6); WHITE BLOOD COUNT 8.3 K/mm3 (4.0-10.0)
[2023-05-19 13:38] LABS: INR 1.06 (0.83-1.09); PROTHROMBIN TIME (PATIENT) 12.3 SEC (9.7-13.0)
[2023-05-19 13:41] LABS: ACTIVATED PTT 28.9 SECONDS (25.2-36.5)
[2023-05-19 13:48] LABS: POTASSIUM 4.3 mmol/L (3.5-5.1)
[2023-05-19 13:50] LABS: CALCIUM 9.5 mg/dL (8.5-10.1)
[2023-05-19 13:51] LABS: ALBUMIN 3.3 g/dl (3.4-5.0); BLOOD UREA NITROGEN 15.7 mg/dL (7-18); MAGNESIUM 2.1 mg/dL (1.8-2.4)
[2023-05-19 13:54] LABS: CREATININE 0.3 mg/dL (0.55-1.3)
[2023-05-19 13:56] LABS: BILIRUBIN,TOTAL 0.4 mg/dL (0.2-1); TOT PROT 7.9 g/dl (6.4-8.2)
[2023-05-19] MEDS: SODIUM PHOSPHATE/NA BIPHOS 133 ML ENEMA PR ONE (15:43)
[2023-05-19] MEDS ORDERED: MAGNESIUM CITRATE 300 ML BOTTLE ONE (16:16)
[2023-05-19] MEDS: MAGNESIUM CITRATE 300 ML BOTTLE PO ONE (16:52)
[2023-05-19] MEDS: LACTATED RINGERS SOLUTION 1000 ML INFUS.BAG IV ONE (17:25)
[2023-05-19] MEDS ORDERED: ACETAMINOPHEN INJECTION 100 ML IVPB ONE (18:30)
[2023-05-19] MEDS: ACETAMINOPHEN 1000 MG/100 ML BAG IVPB ONE (18:32)
[2023-05-19 20:21] VITALS: BP 98/62; PULSE 89; RESP 14
[2023-05-19 21:46] LABS: URINE APPEARANCE CLOUDY; URINE BILIRUBIN NEGATIVE (NEGATIVE); URINE COLOR YELLOW; URINE GLUCOSE (UA) NEGATIVE (NEGATIVE); URINE KETONE NEGATIVE (NEGATIVE); URINE LEUK ESTERASE NEGATIVE (NEGATIVE); URINE NITRITE NEGATIVE (NEGATIVE); URINE PROTEIN NEGATIVE (NEGATIVE)
== END 2023-05-20 00:07 | disposition home or self-care (01) ==
LOC: JER 12:13
PROC: 3E033NZ Introduction of Analgesics, Hypnotics, Sedatives into Peripheral Vein, Percutaneous Approach (ICD-10-PCS; principal; 2023-05-19)
PROC: 3E033GC Introduction of Other Therapeutic Substance into Peripheral Vein, Percutaneous Approach (ICD-10-PCS; 2023-05-19)
DX: R10.84 Generalized abdominal pain (principal); R51.9 Headache, unspecified; K59.00 Constipation, unspecified; Z20.822 Contact with and (suspected) exposure to COVID-19
CPT/HCPCS: 0241U-QW; 36415; 71045-TC-FY; 74177-TC; 80053; 81003; 83605; 83690; 83735; 85025; 85610; 85730; 86850; 86900; 86901; 87086; 93005; 93010; 99285-25; J0131